=== PATIENT | male | born 1965 | race Caucasian/White ===

== ENCOUNTER 2018-05-27 08:14 | Outpatient (CLI) | payer BC ==
[2018-05-27] VITALS (9 sets, daily range): BP systolic 95–135; BP diastolic 59–81
[~2018-05-27] VITALS: Ht 177.8 cm; Wt 93.4 kg
[~2018-05-27 08:14] MED LIST: ASPI-630 PO; CRESTOR20 MG PO; ICOS1CAP PO
[2018-05-27] MEDS ORDERED: IODIXANOL 320 MG/ML 100 ML VIAL. ONE ×2 (08:23→10:23)
[2018-05-27] MEDS ORDERED: HEPARIN for ARTERIAL LINE 1,500 ML ONE (08:23)
[2018-05-27] MEDS ORDERED: LIDOCAINE 1% PF 2 ML VIAL. ONE (08:23)
[2018-05-27 08:45] LABS: HEMATOCRIT 45.9 % (39.0-53.0); RED BLOOD COUNT 4.89 x10^6/uL (4.30-5.70); RED CELL DISTRIBUTION WIDTH 14.7 % (11.5-14.5)
[2018-05-27 09:17] LABS: CALCIUM 9.5 mg/dL (8.5-10.1); CREATININE 0.9 mg/dL (0.7-1.3); GFR 87.9; POTASSIUM 4.5 mmol/L (3.5-5.1); PROTHROMBIN TIME PATIENT 12.6 SEC (11.7-14.0)
--- NOTE | 2018-05-27 10:25 | PDOC ---
MODERATE SEDATION ASSESSMENT RISKS/ALTERNATIVES Risks/Alternatives Risks and alternatives of this type of sedation and procedure discussed with: RISK/ALTERNATIVES: Patient H & P ON CHART H & P H & P on chart and reviewed for co-morbid conditions and appropriate labs. H&P ON CHART: Yes STATUS PREG STATUS ASSESSED: N/A MEDS/ALLERGIES REVIEWED Meds/Allergies Reviewed Medications and Allergies including time and route of recently administered narcotics and sedatives. MEDS/ALLERGIES REVIEWED: Yes ASA RATING ASA RATING: II AIRWAY ASSESSMENT Airway Assessment Airway patency, oral function limitations, presence of caps, crowns, dentures, partials, and ability to extend neck assessed. AIRWAY ASSESSMENT: Yes MALLAMPATI SCORE MALLAMPATI SCORE: II PRE-SEDATION ASSESSMENT PRE-SEDATION ASSESSMENT: Yes CHERIE NORTON MD May 27, 2018 10:25
[2018-05-27] MEDS ORDERED: VERAPAMIL 5 MG/2 ML VIAL. ONE (10:28)
[2018-05-27] MEDS ORDERED: fentaNYL PF VIAL 100 MCG/2 ML VIAL ONE (10:28)
[2018-05-27] MEDS ORDERED: HEPARIN for IV BOLUS 10,000 UNIT/10 ML VIAL. ONE (10:28)
[2018-05-27] MEDS ORDERED: MIDAZOLAM HCL/PF 2 MG/2 ML VIAL. ONE (10:28)
[2018-05-27] MEDS ORDERED: NITROGLYCERIN 200 MCG/2 ML SYRINGE FOR CATH/VASC LAB. ONE (10:29)
[2018-05-27] MEDS ORDERED: VERAPAMIL 5 MG/2 ML VIAL. IART ONE (10:45)
[2018-05-27] MEDS ORDERED: HEPARIN for IV BOLUS 10,000 UNIT/10 ML VIAL. IART ONE (10:45)
[2018-05-27] MEDS ORDERED: fentaNYL PF VIAL 100 MCG/2 ML VIAL IV ONE (10:45)
[2018-05-27] MEDS ORDERED: LIDOCAINE 1% PF 2 ML VIAL. INJ ONE (10:45)
[2018-05-27] MEDS ORDERED: MIDAZOLAM HCL/PF 2 MG/2 ML VIAL. IV ONE (10:45)
[2018-05-27] MEDS ORDERED: NITROGLYCERIN 200 MCG/2 ML SYRINGE FOR CATH/VASC LAB. IART ONE (10:45)
[2018-05-27] MEDS ORDERED: IODIXANOL 320 MG/ML 100 ML VIAL. IART ONE (10:45)
[2018-05-27] MEDS ORDERED: RANO500T2 PO (11:18)
--- NOTE | 2018-05-27 11:25 | CARD ---
MR#: [id number] Date of Study: 05/27/2018 Ordering Physician: HALLE MACIAS, Referring Physician: CHERIE QURESHI, Tech: RT Floyd (R) CAITLYN APPROVED REPORT Technologist: RT Floyd (R) CAITLYN Nurse: Makeda Kingsley R.N. Procedure(s) performed: 30 MINUTES SEDATION [facility], Coronary angiography HISTORY The patient is a 52 year-old male with a history of : coronary artery disease. INDICATION The indication(s) include : unstable angina . PROCEDURE NARRATIVE INFORMED CONSENT: After explaining the risks and benefits of the procedure and alternatives, informed consent was obtained. The patient was brought electively to the cardiac catheterization lab. A timeout was performed confi rming the patient's name, date of , procedure, and site of procedure. All necessary personnel w ere wearing the appropriate protective equipment and radiation monitor devices. (See nursing notes for medications administered). ACCESS: The right wrist was sterilely prepped and draped in the usual fashion. The right wrist was infiltrat ed with 1 mL of 2% lidocaine for subcutaneous anesthesia. A 6 Chinese Terumo glide sheath was inserte d into the right radial artery without difficulty. CORONARY ANGIOGRAPHY: Right and left coronary angiography was performed using a 6Fr TIG 4.0 catheter. Left ventricular en d diastolic pressure was obtained with a TIG catheter and pullback was performed after left ventricul ography. All catheter exchanges and advancements were performed over a guidewire. CLOSURE: At case completion the right radial sheath was removed and a Terumo radial band was applied with 13 m l of air. COMPLICATIONS: The patient tolerated the procedure well and there were no immediate complications. FINDINGS: HEMODYNAMICS: LVEDP 14 mm Hg No gradient on LV to aortic pullback. AO: 110/50 LEFT VENTRICULOGRAM: EF 55% Anterobasal: Normal. Anterolateral: Normal Apical: Normal Diaphragmatic: Normal Posterobasal: Normal CORONARY ANGIOGRAPHY: LM is a large caliber vessel with normal angiographic appearance. LAD is a large caliber vessel with an ostial 10-20% stenosis. Ramus is a moderate caliber vessel with normal angiographic apeparance. LCx is a moderate caliber non-dominant vessel with normal angiographic appearance. OM1 is a moderate caliber vessel with a patent previously placed stent. RCA is a large caliber dominant vessel with mild luminal irregularities. RPDA and RPL are moderate caliber vessels with normal angiographic appearance. Conclusion 1. Normal left sided filling pressures. 2. Normal LV systolic funtion. EF 55% 3. Patent previous LCx stent 4. 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 In light of this, it is unlikely that his LAD bridging is causing any angina. More likely he has microvascular disease. Trial of renexa therapy. Follow up in the office in 4-6 weeks. Signed by : Cherie Qureshi, Electronically Approved : 05/27/2018 11:23:42
--- NOTE | 2018-05-27 13:40 | NUR ---
Discharge Note: [facility] Discharge instructions and discharge home medications reviewed with Patient and a copy given. All questions have been answered and understanding verbalized. The following instructions and handouts were given: radial site care, moderate sedation, wound infection.n instructed to get samples from Dr. Qureshi's office. stated she will pick them up as soon as the pt is discharged. Discontinued lines and drains: Peripheral IV intact. Patient discharged to Home or Self Care with Spouse via Wheelchair
== END 2018-05-27 13:40 | disposition home or self-care (01) ==
LOC: CCL 08:14
PROVIDERS: ATTEND Internal Medicine Cardiovascular Disease
DX: I25.110 Atherosclerotic heart disease of native coronary artery with unstable angina pectoris (principal); Z79.899 Other long term (current) drug therapy; Z79.01 Long term (current) use of anticoagulants; Z88.8 Allergy status to other drugs, medicaments and biological substances
CPT/HCPCS: 36415; 80048; 85027; 85610; 85730; 93458; 99152; 99153; C1769; C1892; J1644; J2250; J3010; J3490; Q9967